=== PATIENT | male | born 1945 | race Caucasian/White ===

== ENCOUNTER 2021-02-17 17:42 | Emergency (ER) | payer MEDICARE ==
[~2021-02-17] VITALS: Ht 188 cm; Wt 113.7 kg
[~2021-02-17 17:42] MED LIST: CALCIUM CHLORIDE 1,000 MG/10 ML DISP.SYRIN IV ONE; EPINEPHrine SYRINGE 1 MG/10 ML SYRINGE. ONE; SODIUM BICARB ADULT 8.4% 50 MEQ/50 ML DISP.SYRIN. ONE
--- NOTE | 2021-02-17 17:58 | PHYS DOC ---
Past History Past Medical History: Diabetes, High Cholesterol Adult General Chief Complaint Chief Complaint: CPR/FULL ARREST HPI HPI Patient is a 75-year-old female presenting via EMS for cardiac arrest. Patient reportedly suffered a witnessed arrest while at home at 1645 hrs. witnessed patient's arrest stating that he said his chest hurt and it was hard to breathe prompting her to call EMS. Firefighters apparently arrived to scene first and noticed patient was on the ground unresponsive GCS 3 and foaming at the mouth. Patient was found to be in PEA and cardiopulmonary resuscitation started. EMS shortly arrived to scene and placed a right lower extremity IO and inserted an I-gel. Patient received a total of x3 epinephrine in route with PEA reported on first rhythm check and subsequent asystole on remaining x3 rhythm checks. Patient presents to ER approximately 1 hour after having a witnessed arrest. Medications are brought with patient, he is a [id number] diabetic, obese, and takes cholesterol medication only Review of Systems Review of Systems ROS unobtainable due to ongoing cardiac arrest Physical Exam Physical Exam Constitutional: Great appearing, GCS 3, unresponsive and cold to the touch with ongoing CPR HEENT: Head: Normocephalic and atraumatic. TMs clear, no hemotympanum Conjunctivae normal. Pupils are equal, round, fixed and nonreactive to light with no ophthalmic reflux Oropharynx with I-Gel airway present No hematomas or lacerations or abrasions to face or scalp OP clear, no blood, no malocclusion, dentition intact Nares clear, no nasal septal hematoma Midface stable Neck: C-spine midline nontender, no step-offs Cardiovascular: No appreciable heart sounds during auscultation Pulmonary/Chest: Mechanical lung sounds with breath sounds present bilaterally, easy to bag Abdominal: Soft and protuberant. Bowel sounds are normal. Pt exhibits no distension. There is no tenderness. Musculoskeletal: No bony tenderness to extremities, no deformities, full ROM extremities Chest wall stable Pelvis stable and non-tender No vertebral TTP and spine without stepoffs Right tibial IO present Neurological: Patient not alert and/or oriented. GCS 3 No purposeful movements Downgoing toes bilaterally with stimulation Pupils fixed and nonreactive to light, no ophthalmic reflex Skin: Skin is cold and dry. No abrasions, no lacerations Psychiatric: Unable to assess due to current cardiac arrest Current Patient Data Lab Results Laboratory Tests Test 02/17/21 17:45 Glucose (Fingerstick) 258 mg/dL (70-99) H EKG EKG [] Radiology/Procedures Radiology/Procedures [] Heart Score C/O Chest Pain: N/A Risk Factors: Risk Factors: DM, Current or recent (<one month) smoker, HTN, HLP, family history of CAD, obesity. Risk Scores: Risk Factors: DM, Current or recent (<one month) smoker, HTN, HLP, family history of CAD, obesity. Course & Med Decision Making Course & Med Decision Making Ongoing CPR on arrival Patient called with GCS 3, no purposeful movements with neurologic findings concerning for anoxic brain injury POC glucose unremarkable, calcium and bicarb administered immediately on arrival, right. Epinephrines given while in ER. ACLS ensued as documented by nursing bookkeepers supervisor. Rhythm checks x2 were asystole. Bedside ultrasound performed by myself with negative pneumothorax bilaterally and no observed cardiac movement Joint decision among all in the room to discontinue further resuscitative efforts given history of presenting illness, physical exam findings and lack of response to extensive ACLS measures. Formal exam performed by myself documenting no response to pain, no pupillary response to light or touch, no auscultated heart or lung sounds and repeat ultrasound confirmed no cardiac to activity performed with documented time of 1750 at bedside, I notified her of resuscitative actions and decision to discontinue further CPR/resuscitative efforts for which she agreed. Also personally called patient's son and updated him on ER visit today. All questions and concerns addressed prior to end of my shift Nursing bookkeepers supervisor in contact with family regarding future wishes of the patient's body etc. Critical Care Time This patient required critical care. Due to the fact that the patient required a significant amount of one on one physician - patient contact time, ordering and review of studies, arranging urgent treatment with development of a management plan, evaluation of patients response to treatment with frequent reassessments, and discussions with other providers this patient required 35 minutes of critical care time. Critical care time was indicated due to the inherent instability and/or potential for instability in this patient. The critical care time that is allocated to this patient is above and beyond any time spent on any other billable procedures performed on this patient. Dragon Disclaimer Dragon Disclaimer This electronic medical record was generated, in whole or in part, using a voice recognition dictation system. Ultrasound Progress Due to this patient's reported HPI, a focused bedside sonography for cardiac and respiratory function was indicated Bedside ultrasonography was utilized to complete this procedure Cardiac evaluation involved both the parasternal and subxiphoid approaches in addition to bilateral midclavicular these to visualize the heart, pericardial sac and lungs. There was no evidence of bilateral pneumothorax, there was no organized and/or appreciable cardiac movement Departure Departure: Impression: Primary Impression: Cardiac arrest Disposition: 20 Condition: Referrals: PCP,NO (PCP) TATA SCHAEFFER DO Feb 17, 2021 17:58
== END 2021-02-17 22:22 ==
LOC: ER 17:42
DX: I46.9 Cardiac arrest, cause unspecified (principal); E11.9 Type 2 diabetes mellitus without complications; E78.00 Pure hypercholesterolemia, unspecified; E66.9 Obesity, unspecified; Z20.822 Contact with and (suspected) exposure to COVID-19; Z68.32 Body mass index [BMI] 32.0-32.9, adult
CPT/HCPCS: 82947; 87426; 92950; 99285; C9803; J0171; U0003